=== PATIENT | female | born 2000 | race Caucasian/White ===

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

== ENCOUNTER 2022-04-17 15:17 | Emergency (ER) | payer OTHER ==
[2022-04-17] MEDS ORDERED: Ondansetron ODT 4 MG TAB ONE (16:05)
[2022-04-17 16:22] LABS: Bilirubin Small (Negative); Blood, Urine Negative (Negative); Clarity Clear (Clear); Glucose, Urine (Dipstick) Negative (Negative); Ketone, Urine 40 mg/dL (Negative); Leukocyte Negative (Negative); Nitrite Negative (Negative); Protein, Urine (Dipstick) Negative (Neg-Trace); Specific Gravity, Urine 1.025 (1.005-1.030); Urobilinogen 0.2 mg/dL (Less than 2); pH, Urine 5.5 (5.0-9.0)
[2022-04-17 16:27] LABS: Pregnancy Test - Urine (BHCG) Negative (Negative); Pregu Control Background? CLEAR/WHITE (CLR/WHITE); Pregu Control Bar Appear? YES (CONTROL BAR); Specific Gravity 1.025 (1.002-1.036)
== END 2022-04-17 16:50 | disposition home or self-care (01) ==
LOC: BURERS 15:17
DX: H60.92 Unspecified otitis externa, left ear (principal)
CPT/HCPCS: 81003; 81025; 99283; Q0162